=== PATIENT | female | born 1980 ===

== ENCOUNTER 2020-04-12 08:14 | Emergency (ER) | payer OTHER ==
[~2020-04-12] VITALS: Ht 157.5 cm; Wt 115.2 kg
[2020-04-12] MEDS ORDERED: SYNTHROID75 MCG (08:31)
[2020-04-12] MEDS ORDERED: INTEGRA PLUS C1 EACH (08:32)
[2020-04-12] MEDS ORDERED: PRENATAL MULTI1 EAC4 (08:33)
[2020-04-12] MEDS ORDERED: FOLIC ACID0.8 M1 (08:33)
== END 2020-04-12 11:17 | disposition home or self-care (01) ==
LOC: ER 08:14
DX: O26.851 Spotting complicating pregnancy, first trimester (principal); O35.0XX1 Maternal care for (suspected) central nervous system malformation in fetus, fetus 1; Z3A.10 10 weeks gestation of pregnancy

== ENCOUNTER 2020-08-23 16:14 | Outpatient (CLI) | payer OTHER ==
[~2020-08-23 16:14] MED LIST: FOLIC ACID0.8 M1; INTEGRA PLUS C1 EACH; PRENATAL MULTI1 EAC4; SYNTHROID75 MCG
== END 2020-08-24 12:30 | disposition home or self-care (01) ==
LOC: OBS/DEL 16:14
PROVIDERS: ATTEND Specialist
DX: O26.893 Other specified pregnancy related conditions, third trimester (principal); R10.2 Pelvic and perineal pain; O34.211 Maternal care for low transverse scar from previous cesarean delivery; O99.013 Anemia complicating pregnancy, third trimester; D64.89 Other specified anemias; O99.283 Endocrine, nutritional and metabolic diseases complicating pregnancy, third trimester; E03.8 Other specified hypothyroidism; Z3A.29 29 weeks gestation of pregnancy

== ENCOUNTER 2020-10-16 18:02 | Inpatient (IN) | payer OTHER ==
[~2020-10-16] VITALS: Ht 157.5 cm; Wt 3.6 kg
== END 2020-10-19 14:13 | disposition home or self-care (01) | DRG 787 ==
LOC: LDR 18:02 → OB/GYN 18:02 → O/R 10-17 10:19 → OB/GYN 10-17 11:46
PROVIDERS: ADMIT Specialist; ATTEND Specialist
PROC: 10D00Z1 Extraction of Products of Conception, Low, Open Approach (ICD-10-PCS; principal; 2020-10-17 08:45)
DX: O82 Encounter for cesarean delivery without indication (principal); O16.1 Unspecified maternal hypertension, first trimester; Z3A.37 37 weeks gestation of pregnancy; Z37.0 Single live birth; O99.283 Endocrine, nutritional and metabolic diseases complicating pregnancy, third trimester; E03.9 Hypothyroidism, unspecified; O99.019 Anemia complicating pregnancy, unspecified trimester; D64.9 Anemia, unspecified; O13.3 Gestational [pregnancy-induced] hypertension without significant proteinuria, third trimester

== ENCOUNTER 2022-06-05 20:30 | Emergency (ER) | payer OTHER ==
[~2022-06-05] VITALS: Ht 149.9 cm; Wt 120.2 kg
== END 2022-06-06 21:34 | disposition home or self-care (01) ==
LOC: ER 20:30
DX: D64.9 Anemia, unspecified (principal); N92.3 Ovulation bleeding